=== PATIENT | female | born 2000 | race Caucasian/White ===

== ENCOUNTER 2022-03-09 19:11 | Emergency (ER) | payer OTHER ==
[~2022-03-09] VITALS: Ht 154.9 cm; Wt 48.5 kg
[2022-03-09] MEDS ORDERED: ADVIL LIQUI-GE200 MG PO (21:49)
[2022-03-09] MEDS ORDERED: METAXALONE800 MG PO (21:49)
== END 2022-03-09 21:57 | disposition home or self-care (01) ==
LOC: ER 19:11 → EDSEX 19:11 → ER 20:17
DX: S13.4XXA Sprain of ligaments of cervical spine, initial encounter (principal); V49.9XXA Car occupant (driver) (passenger) injured in unspecified traffic accident, initial encounter; Y93.9 Activity, unspecified; Y92.413 State road as the place of occurrence of the external cause; Y99.9 Unspecified external cause status

== ENCOUNTER → 2023-09-08 | Emergency (ER) | payer OTHER ==
[~2023-09-08] MED LIST: ADVIL LIQUI-GE200 MG PO; METAXALONE800 MG PO
== END | disposition home or self-care (01) ==
LOC: ER 10:29
DX: S62.633A Displaced fracture of distal phalanx of left middle finger, initial encounter for closed fracture (principal); S69.82XA Other specified injuries of left wrist, hand and finger(s), initial encounter; X58.XXXA Exposure to other specified factors, initial encounter; Y93.89 Activity, other specified